=== PATIENT | female | born 1955 | race Caucasian/White ===

== ENCOUNTER 2017-04-22 05:32 | Outpatient (CLI) | payer BC ==
[~2017-04-22] VITALS: Ht 157.5 cm; Wt 53.5 kg
[2017-04-22] MEDS ORDERED: ASCO500C17 PO (14:56)
[2017-04-22] MEDS ORDERED: ATOR10TA66 PO (14:56)
[2017-04-22] MEDS ORDERED: ESTR0.3T PO (14:56)
[2017-04-22] MEDS ORDERED: OMG1KC PO (14:56)
[2017-04-22] MEDS ORDERED: LOSA1TAB20 PO (14:56)
[2017-04-22] MEDS ORDERED: MELO15TA39 PO (14:56)
[2017-04-22] MEDS ORDERED: MULT-974 PO (14:56)
[2017-04-22] MEDS ORDERED: CHOL200014 PO (14:56)
[2017-04-22] MEDS ORDERED: CALC600T12 PO (14:56)
[2017-04-22] MEDS ORDERED: GLUC1TAB20 PO (14:56)
== END 2017-04-22 15:05 ==
LOC: PREOP 05:32
PROVIDERS: ATTEND Otolaryngology Otolaryngology/Facial Plastic Surgery
DX: Z01.818 Encounter for other preprocedural examination (principal); J32.9 Chronic sinusitis, unspecified; J34.2 Deviated nasal septum; J34.3 Hypertrophy of nasal turbinates

== ENCOUNTER 2017-04-25 06:51 | Day surgery (SDC) | payer BC ==
[~2017-04-25] VITALS: Ht 157.5 cm; Wt 53.5 kg
[~2017-04-25 06:51] MED LIST: ASCO500C17 PO; ATOR10TA66 PO; CALC600T12 PO; CHOL200014 PO; ESTR0.3T PO; GLUC1TAB20 PO; LOSA1TAB20 PO; MELO15TA39 PO; MULT-974 PO; OMG1KC PO
--- OUTSIDE RECORDS SUMMARY | 2017-04-25 06:56 | XMS REPORT ---
Author Author [facility] Medical Staff Organization [facility] Address [address] [place], [place] [address] Phone [phone] Care Team Providers Care Cleaning Specialist Name Role Phone JAMAL CABRERA MD PP [phone] Summary purpose CCDA Sent to [facility] Chief Complaint and Reason for Visit No authorized Reason for Visit (Admitting Diagnosis) is available for this visit. Problem list No authorized problems tracked for continuity of care are available for this visit. Encounters No authorized problems tracked for encounter diagnoses are available for this visit. Medications No medications recorded for this patient visit Allergies, adverse reactions, alerts Allergen Category Ingredient Status Reaction Severity Onset No known drug allergies No known drug allergies No known drug allergies Active Immunizations No immunizations recorded for this patient visit Relevant diagnostic tests and/or laboratory data No authorized results are available for this patient visit History of procedures Procedure Code Code Type Description Date Performed Performing Physician 29989 CPT-4 EMERGENCY DEPT VISIT 01-22-2016 RENEE CARRENO Functional status No functional or cognitive status observations are available for this visit. Vital signs No authorized vital signs are available for this visit. Social history No Social History or smoking status observations were recorded for this visit. ( Unknown if ever smoked.) Treatment Plan No treatment plan text is available for this visit. Hospital discharge instructions No discharge instruction text is available for this visit.
--- OUTSIDE RECORDS SUMMARY | 2017-04-25 06:56 | XMS REPORT ---
Author Author [facility] Medical Staff Organization [facility] Address [address] [place], [place] [address] Phone [phone] Care Team Providers Care Bilingual Teacher Aide Name Role Phone RICK BULL, JAMAL CHANG [phone] Summary purpose CCDA Sent to [facility] Chief Complaint and Reason for Visit No [...] Code Type Description Date Performed Performing Physician 04556 CPT-4 COMPUTER DX MAMMOGRAM ADD-ON 12-14-2015 JAMAL CABRERA 63748 CPT-4 MAMMOGRAM, ONE BREAST 12-14-2015 JAMAL CABRERA 72026 CPT-4 ULTRASOUND BREAST LIMITED 12-14-2015 JAMAL CABRERA Functional status No functional or cognitive status [...]
--- OUTSIDE RECORDS SUMMARY | 2017-04-25 06:56 | XMS REPORT ---
Author Author [facility] Medical Staff Organization [facility] Address [address] [place], [place] [address] Phone [phone] Summary purpose CCDA Sent to [facility] Chief Complaint and Reason for [...] Code Type Description Date Performed Performing Physician 88610 CPT-4 EMERGENCY DEPT VISIT 05-29-2015 RAMONA FLANAGAN Functional status No functional or cognitive status [...]
--- OUTSIDE RECORDS SUMMARY | 2017-04-25 06:56 | XMS REPORT ---
Author Author [facility] Medical Staff Organization [facility] Address [address] [place], [place] [address] Phone [phone] Care Team Providers Care Typing Teacher Name Role Phone JAMAL CABRERA MD PP [phone] Summary purpose CCDA Sent to [facility] Chief Complaint and Reason for Visit [...] visit Relevant diagnostic tests and/or laboratory data RESULTS CBC [id number]:05:00 Result Normal Range Units WBC 6.33 4.60-10.20 x 103/uL RBC 4.61 4.04-6.13 x 106/uL Hemoglobin 13.3 12.2-18.1 g/dl Hematocrit 39.7 37.7-53.7 % MCV 86.1 80.0-97.0 FL MCH 28.9 27.0-31.2 pg MCHC 33.5 31.8-35.4 g/dl RDW 12.7 11.6-14.8 % Platelets 273 142-424 x 103/uL MPV 9.4 9.4-12.4 FL Manual Diff Not Indicated Neutrophil % 69.7 37-80 % Neutrophils 4.42 2.0-6.9 x 103/uL Lymphocyte % 19.0 10-50 % Lymphocytes 1.20 0.6-3.4 x 103/uL Monocyte % 8.1 0-12 % Monocytes 0.51 0.0-1.0 x 103/uL Eosinophil % 3.0 0-7 % Eosinophils 0.19 0-0.7 x 103/uL Basophil % 0.2 0-2 % Basophils 0.01 0.0-0.1 x 103/uL Chemistry Group [id number]:00 Result Normal Range Units Glucose 85 70-99 mg/dl BUN 16 7-26 mg/dl Creatinine 0.6 0.6-1.3 mg/dl Sodium 141 136-145 mmol/L Potassium 4.1 3.5-5.1 mmol/L Chloride H 108 98-107 mmol/L CO2 26 22-29 mmol/L BUN/Creatinine Ratio H 27 7-25 Ratio Calcium 9.9 8.4-10.2 mg/dl Protein Total 6.6 6.4-8.3 g/dl Albumin 3.9 3.5-5.0 g/dl A/G Ratio 1.4 1.2-2.2 Ratio AST 15 5-34 U/L ALT 15 0-55 U/L ALP 63 40-150 U/L Bilirubin Total 0.3 0.2-1.2 mg/dl Osmolality 273 261-280 mOsm/kg Globulin 2.7 2.4-3.5 g/dl Magnesium 2.5 1.6-2.8 mg/dl Phosphorus 3.7 2.3-4.7 mg/dl Iron 81 50-175 ug/dl History of procedures Procedure Code Code Type Description Date Performed Performing Physician 18701 CPT-4 COMPLETE CBC W/AUTO DIFF WBC 01-25-2016 [facility] 28854 CPT-4 COMPREHEN METABOLIC PANEL 01-25-2016 [facility] 01541 CPT-4 ASSAY OF IRON 01-25-2016 [facility] 47202 CPT-4 ASSAY OF MAGNESIUM 01-25-2016 [facility] 19990 CPT-4 ASSAY OF PHOSPHORUS 01-25-2016 [facility] 29373 CPT-4 ROUTINE VENIPUNCTURE 01-25-2016 [facility] Functional status No functional or cognitive status [...]
--- OUTSIDE RECORDS SUMMARY | 2017-04-25 06:56 | XMS REPORT ---
Author Author [facility] Medical Staff Organization [facility] Address [address] [place], [place] [address] Phone [phone] Care Team Providers Care Admitting Interviewer Name Role Phone RICK BULL, JAMAL CHANG [phone] Summary purpose CCDA Sent to [facility] Chief Complaint and Reason for Visit Admit Diagnosis 1 HTN HLD MURMUR Problem list No authorized problems tracked for [...] Code Type Description Date Performed Performing Physician 37047 CPT-4 TTE W/DOPPLER, COMPLETE 07-18-2016 JAMAL CABRERA Functional status No functional or [...]
--- OUTSIDE RECORDS SUMMARY | 2017-04-25 06:56 | XMS REPORT ---
Author Author [facility] Medical Staff Organization [facility] Address [address] [place], [place] [address] Phone [phone] Summary purpose CCDA Sent to [facility] Chief Complaint and Reason for Visit [...] Code Type Description Date Performed Performing Physician 08904 CPT-4 X-RAY EXAM OF HAND 05-29-2015 RAMONA FLANAGAN 05292 CPT-4 EMERGENCY DEPT VISIT 05-29-2015 RAMONA FLANAGAN Functional status Cognitive Status Finding Observation Time Level of Consciousne Alert 34-64-882674:05 Oriented to Person Yes 28-91-151831:[address] Yes 28-20-522530:05 Oriented to Time Yes 88-92-598436:05 Vital signs Type Value Date Respirations 20 99-81-209037:20 Pulse 81 13-39-231065:20 O2 Saturation 95% 99-64-408945:20 Systolic Blood Press 136mm/HG 94-70-445947:20 Diastolic Blood Pres 85mm/HG 50-90-490192:20 Temperature (Fahr) 97.2Degrees 94-23-567154:20 Social history Type Value Smoking Status UNKNOWN IF EVER SMOKED Treatment Plan No treatment plan text is available for this visit. Hospital discharge instructions Diagnosis Fracture of 5th metacarpal Diet Regular Activity Level No limits with splint Med Dispensed by [facility] You had a hand xray and an Rx for Tylenol #3 was given for the pain of the metacarpal. Follow up with your doctor Appointment Date and as needed Wound Care To wear the splint for 2-3 weeks and allow the bone to heal but can remove for showering and etc. You have a metacarpal splint with 2in jack wrap for support. Other Instructions notify if has further problems or questions.
--- OUTSIDE RECORDS SUMMARY | 2017-04-25 06:56 | XMS REPORT ---
Author Author [facility] Medical Staff Organization [facility] Address [address] [place], [place] [address] Phone [phone] Care Team Providers Care Field Assessor Name Role Phone RICK BULL, JAMAL PP [phone] JAMAL SKELTON MD PP [phone] Summary purpose CCDA Sent to [facility] Chief Complaint and Reason for Visit Admit Diagnosis 1 LT FOOT PAIN/BRUSING - FALL Problem list No authorized problems tracked for [...] Code Type Description Date Performed Performing Physician 03689 CPT-4 X-RAY EXAM OF FOOT 01-22-2016 JAMAL SKELTON 09531 CPT-4 EMERGENCY DEPT VISIT 01-22-2016 JAMAL SKELTON Functional status Cognitive Status Finding Observation Time Level of Consciousne Alert 22-90-237760:20 Oriented to Person Yes 71-41-981380:[address] Yes 70-59-275156:20 Oriented to Time Yes 71-88-151200:20 Vital signs Type Value Date Respirations 20 58-69-659700:45 Pulse 73 :45 O2 Saturation 97% :45 Systolic Blood Press 152mm/HG 21-83-988576:45 Diastolic Blood Pres 88mm/HG :45 Temperature (Fahr) 97.0Degrees 44-14-372975:45 Height 61in 41-42-543061:22 Weight 117LB 13-63-263599:22 Social history Type Value Smoking Status NEVER SMOKER Treatment Plan No treatment plan text is available for this visit. Hospital discharge instructions Diagnosis Fracture of the shaft of the left 5th metatarsal Diet as tolerated Activity Level No weight bearing on the left foot. Use crutches if possible Med Dispensed by [facility] None. Use home pain meds. Follow up with Dr. Skelton Appointment Date and Sat or
--- OUTSIDE RECORDS SUMMARY | 2017-04-25 06:56 | XMS REPORT ---
Author Author [facility] Medical Staff Organization [facility] Address [address] [place], [place] [address] Phone [phone] Care Team Providers Care Kennel Hand Name Role Phone RICK BULL, JAMAL CHANG [phone] Summary purpose CCDA Sent to [facility] Chief Complaint and Reason for Visit Admit Diagnosis 1 HTN HLD Problem list No authorized problems tracked for [...] Code Type Description Date Performed Performing Physician 73077 CPT-4 COMPREHEN METABOLIC PANEL 07-16-2016 JAMAL CABRERA 63108 CPT-4 ASSAY THYROID STIM HORMONE 07-16-2016 JAMAL CABRERA 24681 CPT-4 LIPID PANEL 07-16-2016 JAMAL CABRERA 27851 CPT-4 ASSAY OF MAGNESIUM 07-16-2016 JAMAL CABRERA 59128 CPT-4 ASSAY OF PHOSPHORUS 07-16-2016 JAMAL CABRERA 36041 CPT-4 COMPLETE CBC W/AUTO DIFF WBC 07-16-2016 JAMAL CABRERA Functional status No functional or [...]
--- OUTSIDE RECORDS SUMMARY | 2017-04-25 06:56 | XMS REPORT ---
Author Author [facility] Medical Staff Organization [facility] Address [address] [place], [place] [address] Phone [phone] Care Team Providers Care Block Cableman Name Role Phone RICK BULL, JAMAL PP [phone] Summary purpose CCDA Sent to [facility] Chief Complaint and Reason for Visit Admit Diagnosis 1 FX OF LEFT FOOT Problem list No authorized problems tracked for [...] Code Type Description Date Performed Performing Physician 67234 CPT-4 X-RAY EXAM OF FOOT 03-27-2016 JAMAL CABRERA Functional status No functional or [...]
--- OUTSIDE RECORDS SUMMARY | 2017-04-25 06:56 | XMS REPORT ---
Author Author [facility] Medical Staff Organization [facility] Address [address] [place], [place] [address] Phone [phone] Summary purpose CCDA Sent to [facility] Chief Complaint and Reason for Visit [...] diagnostic tests and/or laboratory data RESULTS CBC :54:00 Result Normal Range Units WBC 5.37 4.60-10.20 x 103/uL RBC 4.62 4.04-6.13 x 106/uL Hemoglobin 13.0 12.2-18.1 g/dl Hematocrit 39.8 37.7-53.7 % MCV 86.1 80.0-97.0 FL MCH 28.1 27.0-31.2 pg MCHC 32.7 31.8-35.4 g/dl RDW 12.8 11.6-14.8 % Platelets 238 142-424 x 103/uL MPV 9.6 9.4-12.4 FL Manual Diff Not Indicated Neutrophil % 64.0 37-80 % Neutrophils 3.44 2.0-6.9 x 103/uL Lymphocyte % 23.8 10-50 % Lymphocytes 1.28 0.6-3.4 x 103/uL Monocyte % 8.6 0-12 % Monocytes 0.46 0.0-1.0 x 103/uL Eosinophil % 3.2 0-7 % Eosinophils 0.17 0-0.7 x 103/uL Basophil % 0.4 0-2 % Basophils 0.02 0.0-0.1 x 103/uL Chemistry Group [id number]:54:00 Result Normal Range Units Glucose 88 70-99 mg/dl BUN 19 7-26 mg/dl Creatinine 0.7 0.6-1.3 mg/dl Sodium 143 136-145 mmol/L Potassium 4.2 3.5-5.1 mmol/L Chloride 106 98-107 mmol/L CO2 29 22-29 mmol/L BUN/Creatinine Ratio H 27 7-25 Ratio Calcium 9.7 8.4-10.2 mg/dl Protein Total 6.6 6.4-8.3 g/dl Albumin 3.9 3.5-5.0 g/dl A/G Ratio 1.4 1.2-2.2 Ratio AST 17 5-34 U/L ALT 21 0-55 U/L ALP 56 40-150 U/L Bilirubin Total 0.4 0.2-1.2 mg/dl Osmolality 278 261-280 mOsm/kg Globulin 2.7 2.4-3.5 g/dl Triglycerides H 234 0-149 mg/dl Cholesterol 171 0-199 mg/dl HDL 43 40-60 mg/dl LDL 81 0-130 mg/dl VLDL H 47 0-21 mg/dl Magnesium 2.5 1.6-2.8 mg/dl Phosphorus 3.2 2.3-4.7 mg/dl TSH 1.58 0.35-4.94 uIU/mL Special Chemistry [id number]:54:00 Result Normal Range Units Vitamin D 25 45.2 30-100 ng/ml History of procedures Procedure Code Code Type Description Date Performed Performing Physician 82389 CPT-4 COMPLETE CBC W/AUTO DIFF WBC 07-22-2015 [facility] 05712 CPT-4 COMPREHEN METABOLIC PANEL 07-22-2015 [facility] 53448 CPT-4 LIPID PANEL 07-22-2015 [facility] 68295 CPT-4 ASSAY THYROID STIM HORMONE 07-22-2015 [facility] 33184 CPT-4 ASSAY OF MAGNESIUM 07-22-2015 [facility] 42479 CPT-4 ASSAY OF PHOSPHORUS 07-22-2015 [facility] 36473 CPT-4 ASSAY OF VITAMIN D 07-22-2015 [facility] 44666 CPT-4 ROUTINE VENIPUNCTURE 07-22-2015 [facility] Functional status No functional or cognitive status [...]
--- OUTSIDE RECORDS SUMMARY | 2017-04-25 06:56 | XMS REPORT ---
Author Author [facility] Medical Staff Organization [facility] Address [address] [place], [place] [address] Phone [phone] Care Team Providers Care Road Cutter Name Role Phone RICK BULL, JAMAL CHANG [phone] Summary purpose CCDA Sent to [facility] Chief Complaint and Reason for Visit No [...] Code Type Description Date Performed Performing Physician 42840 CPT-4 COMP SCREEN MAMMOGRAM ADD-ON 12-02-2015 JAMAL CABRERA G0202 CPT-4 SCREENINGMAMMOGRAPHYDIGITAL 12-02-2015 JAMAL CABRERA Functional status No functional or [...]
--- OUTSIDE RECORDS SUMMARY | 2017-04-25 06:56 | XMS REPORT ---
Author Author [facility] Medical Staff Organization [facility] Address [address] [place], [place] [address] Phone [phone] Summary purpose CCDA Sent to [facility] Chief Complaint and Reason for Visit [...] Code Type Description Date Performed Performing Physician 88758 CPT-4 X-RAY EXAM OF HAND 06-06-2015 RAMONA FLANAGAN Functional status No functional or [...]
--- OUTSIDE RECORDS SUMMARY | 2017-04-25 06:56 | XMS REPORT ---
Author Author [facility] Medical Staff Organization [facility] Address [address] [place], [place] [address] Phone [phone] Care Team Providers Care Machine Operator Farmworker Name Role Phone RICK BULL, JAMAL PP [phone] Summary purpose CCDA Sent to [facility] Chief Complaint and Reason for Visit No [...] Code Type Description Date Performed Performing Physician 67736 CPT-4 X-RAY EXAM OF FOOT 02-14-2016 JAMAL CABRERA Functional status No functional or [...]
--- OUTSIDE RECORDS SUMMARY | 2017-04-25 06:57 | XMS REPORT | Continuity of Care Document ---
Author Author [facility] Organization [facility] Address Unknown Phone Unavailable Allergies Active Description Code Type Severity Reaction Onset Reported/Identified Relationship to Patient Clinical Status Yes No known drug allergies [id number] ND N/A N/A 05/29/2015 Medications There is no data. Problems Date Dx Coded Attending Type Code Diagnosis Diagnosed By 05/29/2015 RAMONA FLANAGAN DO S62.317A Disp fx of base of fifth metacarpal bone. left hand, init 05/29/2015 RAMONA FLANAGAN DO W19.XXXA Unspecified fall, initial encounter 05/29/2015 RAMONA FLANAGAN DO Y92.[address] in single-family (private) house as place 05/29/2015 RAMONA FLANAGAN DO Y93.9 Activity, unspecified 05/29/2015 RAMONA FLANAGAN DO Y99.9 Unspecified external cause status 05/29/2015 RAMONA FLANAGAN DO S62.317A Disp fx of base of fifth metacarpal bone. left hand, init 05/29/2015 RAMONA FLANAGAN DO W19.XXXA Unspecified fall, initial encounter 05/29/2015 RAMONA FLANAGAN DO Y92.[address] in single-family (private) house as place 05/29/2015 RAMONA FLANAGAN DO Y93.9 Activity, unspecified 05/29/2015 RAMONA FLANAGAN DO Y99.9 Unspecified external cause status 06/06/2015 RAMONA FLANAGAN DO S62.317D Disp fx of base of 5th MC bone. l hand, 7thD 07/22/2015 JAMAL CABRERA MD E78.5 Hyperlipidemia, unspecified 07/22/2015 JAMAL CABRERA MD M19.90 Unspecified osteoarthritis, unspecified site 07/22/2015 JAMAL CABRERA MD R53.83 Other fatigue 12/02/2015 JAMAL CABRERA MD Z12.31 Encntr screen mammogram for malignant neoplasm of breast 12/14/2015 RICK BULL, JAMAL Ayala N63 Unspecified lump in breast 12/14/2015 JAMAL CABRERA MD R92.8 Oth abn and inconclusive findings on dx imaging of breast 01/22/2016 JAMAL CABRERA MD S92.352A Disp fx of fifth metatarsal bone, left foot, init 01/22/2016 JAMAL CABRERA MD W19.XXXA Unspecified fall, initial encounter 01/22/2016 JAMAL CABRERA MD Y92.[address] in single-family (private) house as place 01/22/2016 JAMAL CABRERA MD Y93.89 Activity, other specified 01/22/2016 JAMAL CABRERA MD Y99.9 Unspecified external cause status 01/25/2016 JAMAL CABRERA MD D64.9 Anemia, unspecified 01/25/2016 JAMAL CABRERA MD I10 Essential (primary) hypertension 02/14/2016 JAMAL CABRERA MD S92.352A Disp fx of fifth metatarsal bone, left foot, init 02/14/2016 JAMAL CABRERA MD W19.XXXA Unspecified fall, initial encounter 02/14/2016 JAMAL CABRERA MD Y92.[address] in single-family (private) house as place 02/14/2016 JAMAL CABRERA MD Y93.9 Activity, unspecified 02/14/2016 JAMAL CABRERA MD Y99.9 Unspecified external cause status 03/27/2016 JAMAL CABRERA MD S92.902D Unsp fracture of left foot, subs for fx w routn heal 07/16/2016 JAMAL CABRERA MD E78.5 Hyperlipidemia, unspecified 07/16/2016 JAMAL CABRERA MD I10 Essential (primary) hypertension 07/18/2016 JAMAL CABRERA MD E78.5 Hyperlipidemia, unspecified 07/18/2016 JAMAL CABRERA MD I10 Essential (primary) hypertension 07/18/2016 JAMAL CABRERA MD R01.1 Cardiac murmur, unspecified 01/28/2017 JAMAL CABRERA MD E78.5 Hyperlipidemia, unspecified 01/28/2017 JAMAL CABRERA MD Z12.31 Encntr screen mammogram for malignant neoplasm of breast 01/31/2017 RICK BULL, JAMAL Ayala N39.0 Urinary tract infection, site not specified 02/05/2017 RICK BULL, JAMAL Ayala J32.9 Chronic sinusitis, unspecified 03/15/2017 AARON REEVES J32.9 Chronic sinusitis, unspecified 03/15/2017 AARON REEVES J34.2 Deviated nasal septum 04/11/2017 RICHARD BULL, PEACE Ayala Z01.818 Encounter for other preprocedural examination Procedures Code [place] [address] X-RAY EXAM OF HAND RAMONA FLANAGAN DO 05/29/2015 13924 EMERGENCY DEPT VISIT RAMONA FLANAGAN DO 05/29/2015 32356 EMERGENCY DEPT VISIT PANCHITO SZYMANSKI RAMONA L 05/29/2015 86214 X-RAY EXAM OF RAMONA FENG DO 06/06/2015 92956 ROUTINE VENIPUNCTURE JAMAL CABRERA MD 07/22/2015 02786 COMPREHEN METABOLIC PANEL JAMAL CABRERA MD 07/22/2015 33832 LIPID PANEL JAMAL CABRERA MD 07/22/2015 78038 VITAMIN D 25 HYDROXY JAMAL CABRERA MD 07/22/2015 40742 ASSAY OF MAGNESIUM JAMAL CABRERA MD 07/22/2015 21062 ASSAY OF PHOSPHORUS JAMAL CABRERA MD 07/22/2015 62745 ASSAY THYROID STIM HORMONE JAMAL CABRERA MD 07/22/2015 26814 COMPLETE CBC W/AUTO DIFF WBC JAMAL CABRERA MD 07/22/2015 84888 COMP SCREEN MAMMOGRAM ADD- ON JAMAL CABRERA MD 12/02/2015 G0202 SCREENINGMAMMOGRAPHYDIGITAL JAMAL CABRERA MD 12/02/2015 38031 ULTRASOUND BREAST LIMITED JAMAL CABRERA MD 12/14/2015 66356 COMPUTER DX MAMMOGRAM ADD- ON JAMAL CABRERA MD 12/14/2015 63899 MAMMOGRAM ONE BREAST JAMAL CABRERA MD 12/14/2015 66839 X-RAY EXAM OF FOOT JAMAL CABRERA MD 01/22/2016 36676 EMERGENCY DEPT VISIT JAMAL CABRERA MD 01/22/2016 70708 ROUTINE VENIPUNCTURE JAMAL CABRERA MD 01/25/2016 44689 COMPREHEN METABOLIC PANEL RICK BULL, JAMAL Michael 01/25/2016 51130 ASSAY OF IRON RICK BULL, JAMAL Michael 01/25/2016 72990 ASSAY OF MAGNESIUM RICK BULL, JAMAL Michael 01/25/2016 36505 ASSAY OF PHOSPHORUS RICK BULL, JAMAL Michael 01/25/2016 67981 COMPLETE CBC W/AUTO DIFF WBC RICK BULL, JAMAL Michael 01/25/2016 40560 X-RAY EXAM OF FOOT RICK BULL, JAMAL Michael 02/14/2016 37908 X-RAY EXAM OF FOOT RICK BULL, JAMAL Michael 03/27/2016 71730 ROUTINE VENIPUNCTURE RICK BULL, JAMAL Michael 07/16/2016 14836 COMPREHEN METABOLIC PANEL RICK BULL, JAMAL Michael 07/16/2016 18376 LIPID PANEL RICK BULL, JAMAL Michael 07/16/2016 83023 ASSAY OF MAGNESIUM RICK BULL, JAMAL Michael 07/16/2016 70305 ASSAY OF PHOSPHORUS RICK BULL, JAMAL Michael 07/16/2016 84117 ASSAY THYROID STIM HORMONE RICK BULL, JAMAL Michael 07/16/2016 78783 COMPLETE CBC W/AUTO DIFF WBC RICK BULL, JAMAL Michael 07/16/2016 40151 TTE W/DOPPLER VIKAS CABRERA MD, JAMAL Michael 07/18/2016 02284 ROUTINE VENIPUNCTURE RICK BULL, JAMAL Michael 01/28/2017 97419 SCR MAMMO BI INCL CAD RICK BULL, JAMAL Michael 01/28/2017 35100 ASSAY OF TRIGLYCERIDES RICK BULL, JAMAL Michael 01/28/2017 11182 URINALYSIS AUTO W/SCOPE RICK BULL, JAMAL Michael 01/31/[address] MAXILLOFACIAL W/O DAPHNE CABRERA MD, JAMAL Michael 02/05/[address] MAXILLOFACIAL W/O AARON RICO 03/15/2017 25790 ROUTINE VENIPUNCTURE RICHARD BULL, PEACE [place] 04/11/2017 94906 X-RAY EXAM CHEST 2 VIEWS RICHARD BULL, PEACE [place] 04/11/2017 69950 METABOLIC PANEL TOTAL CA RICHARD BULL, PEACE [place] 04/11/2017 37015 COMPLETE CBC W/AUTO DIFF WBC RICHARD BULL, PEACE [place] 04/11/2017 23705 ELECTROCARDIOGRAM TRACING PEAEC RAMOS MD 04/11/2017 Results Test Result Range COMPLETE BLOOD COUNT - 07/22/15 11:20 Platelet 238 10^3u 142-424 MPV 9.6 FL 9.4-12.4 [place] # 0.46 10^3u 0.0-1.0 RBC 4.62 10^6u 4.04-6.13 [place] % 8.6 % 0-12 RDW 12.8 % 11.6-14.8 Neut # 3.44 10^3u 2.0-6.9 Neut % 64.0 % 37-80 WBC 5.37 10^3u 4.60-10.20 MCV 86.1 FL 80.0-97.0 Baso # 0.02 10^3u 0.0-0.1 Baso % 0.4 % 0-2 Eos # 0.17 10^3u 0-0.7 Eos % 3.2 % 0-7 Lymph % 23.8 % 10-50 MCHC 32.7 G/DL 31.8-35.4 MCH 28.1 PG 27.0-31.2 Lymph # 1.28 10^3u 0.6-3.4 HGB 13.0 G/DL 12.2-18.1 HCT 39.8 % 37.7-53.7 CMP - 07/22/15 11:45 Osmo Calculated 278 MOSM 261-280 Sodium 143 MMOLL 136-145 T. Protein 6.6 G/DL 6.4-8.3 Potassium 4.2 MMOLL 3.5-5.1 T Bili 0.4 MG/DL 0.2-1.2 Calcium 9.7 MG/DL 8.4-10.2 BUN 19 MG/DL 7-26 Chloride 106 MMOLL 98-107 AST 17 U/L 5-34 ALT 21 U/L 0-55 Albumin 3.9 G/DL 3.5-5.0 A/G Ratio 1.4 RATIO 1.2-2.2 Bun/Creat 27 RATIO 7-25 Alk Phos 56 U/L 40-150 CO2 29 MMOLL 22-29 Glucose 88 MG/DL 70-99 Globulin 2.7 G/DL 2.4-3.5 Creatinine 0.7 MG/DL 0.6-1.3 Lipid Profile - 07/22/15 11:45 HDL 43 MG/DL 40-60 VLDL 47 MG/DL 0-21 Triglyceride 234 MG/DL 0-149 Cholesterol 171 MG/DL 0-199 LDL Calculated 81 MG/DL 0-130 TSH - 07/22/15 11:45 TSH 1.58 UIUML 0.35-4.94 Magnesium - 07/22/15 11:46 Magnesium 2.5 MG/DL 1.6-2.8 Phosphorus - 07/22/15 11:46 Phosphorus 3.2 MG/DL 2.3-4.7 Vitamin D 25 Hydroxy - 07/22/15 12:33 Vitamin D 25 Hydroxy 45.2 NG/ML 30-100 COMPLETE BLOOD COUNT - 01/25/16 10:53 Platelet 273 10^3u 142-424 MPV 9.4 FL 9.4-12.4 [place] # 0.51 10^3u 0.0-1.0 RBC 4.61 10^6u 4.04-6.13 [place] % 8.1 % 0-12 RDW 12.7 % 11.6-14.8 Neut # 4.42 10^3u 2.0-6.9 Neut % 69.7 % 37-80 WBC 6.33 10^3u 4.60-10.20 MCV 86.1 FL 80.0-97.0 Baso # 0.01 10^3u 0.0-0.1 Baso % 0.2 % 0-2 Eos # 0.19 10^3u 0-0.7 Eos % 3.0 % 0-7 Lymph % 19.0 % 10-50 MCHC 33.5 G/DL 31.8-35.4 MCH 28.9 PG 27.0-31.2 Lymph # 1.20 10^3u 0.6-3.4 HGB 13.3 G/DL 12.2-18.1 HCT 39.7 % 37.7-53.7 Iron - 01/25/16 11:45 Iron 81 UG/DL 50-175 CMP - 01/25/16 11:45 Osmo Calculated 273 MOSM 261-280 Sodium 141 MMOLL 136-145 T. Protein 6.6 G/DL 6.4-8.3 Potassium 4.1 MMOLL 3.5-5.1 T Bili 0.3 MG/DL 0.2-1.2 Calcium 9.9 MG/DL 8.4-10.2 BUN 16 MG/DL 7-26 Chloride 108 MMOLL 98-107 AST 15 U/L 5-34 ALT 15 U/L 0-55 Albumin 3.9 G/DL 3.5-5.0 A/G Ratio 1.4 RATIO 1.2-2.2 Bun/Creat 27 RATIO 7-25 Alk Phos 63 U/L 40-150 CO2 26 MMOLL 22-29 Glucose 85 MG/DL 70-99 Globulin 2.7 G/DL 2.4-3.5 Creatinine 0.6 MG/DL 0.6-1.3 Magnesium - 01/25/16 11:45 Magnesium 2.5 MG/DL 1.6-2.8 Phosphorus - 01/25/16 11:45 Phosphorus 3.7 MG/DL 2.3-4.7 Encounters ACCT No. Visit Date/Time Discharge Status Pt. Type Provider Facility Loc./Unit Complaint [id number] 04/21/2015 12:38:12 04/21/2015 23:59:59 CLS Outpatient Meagan Duran [id number] 04/11/2017 09:07:00 04/11/2017 09:07:00 DIS Outpatient RICHARD BULL, [facility] RAD [id number] 03/15/2017 11:15:00 03/15/2017 11:15:00 [id number] 02/05/2017 10:24:00 02/05/2017 10:24:00 DIS Outpatient RICK BULL, [facility] RAD [id number] 01/31/2017 17:54:00 01/31/2017 17:54:00 DIS Outpatient RICK BULL, [facility] LAB [id number] 01/28/2017 08:14:00 01/28/2017 08:14:00 DIS Outpatient RICK BULL, [facility] RAD [id number] 07/18/2016 09:56:00 07/18/2016 09:56:00 DIS Outpatient RICK BULL, [facility] RAD [id number] 07/16/2016 10:03:00 07/16/2016 10:03:00 DIS Outpatient RICK BULL, [facility] LAB [id number] 03/27/2016 10:45:00 03/27/2016 10:45:00 DIS Outpatient RICK BULL, [facility] RAD [id number] 02/14/2016 10:33:00 02/14/2016 10:33:00 DIS Outpatient RICK BULL, [facility] OTHER [id number] 01/25/2016 10:06:00 01/25/2016 10:06:00 DIS Outpatient RICK BULL, [facility] OTHER [id number] 01/22/2016 09:27:00 01/22/2016 22:19:00 DIS Emergency RICK BULL, [facility] ER [id number] 12/14/2015 11:25:00 12/14/2015 11:25:00 DIS Outpatient RICK BULL, [facility] OTHER [id number] 12/02/2015 09:45:00 12/02/2015 09:45:00 DIS Outpatient RICK BULL, [facility] OTHER [id number] 07/22/2015 10:37:00 07/22/2015 10:37:00 DIS Outpatient RICK BULL, [facility] OTHER [id number] 06/06/2015 12:49:00 06/06/2015 12:49:00 [id number] 05/29/2015 12:09:00 05/29/2015 13:30:00 DIS Emergency [facility] ER [id number] 05/29/2015 12:40:00 05/29/2015 12:40:00 [facility]
[2017-04-25 07:15] VITALS: BP 156/98
[2017-04-25] MEDS: LACTATED RINGERS 1,000 ML IV PRN ×2 (07:44→09:22)
[2017-04-25] MEDS ORDERED: HYDROCORTISONE 100 MG/2 ML (Solu-CORTEF) VIAL IV ONE (07:45)
[2017-04-25] MEDS ORDERED: AMPICILLIN/SULBACTAM INJECTION 1.5 GM in NS (IVPB) 100 ML IV ONE (07:45)
[2017-04-25] MEDS ORDERED: DEXAMETHASONE 10 MG/ML (DECADRON) 1 ML VIAL ONE (08:10)
[2017-04-25] MEDS ORDERED: proPOfol 200 MG/20 ML (DIPRIVAN) VIAL IV ONE (08:10)
[2017-04-25] MEDS ORDERED: LIDOCAINE PF 2% 5 ML (XYLOCAINE) VIAL ONE (08:10)
[2017-04-25] MEDS ORDERED: ONDANSETRON 4 MG/2 ML (SDV) Z0FRAN ONE (08:10)
[2017-04-25] MEDS ORDERED: MIDAZOLAM 2 MG/2 ML (VERSED) VIAL ONE (08:10)
[2017-04-25] MEDS ORDERED: SEVOFLURANE (ULTANE) 15 ML INHAL SOLN ONE ×8 (08:10→10:22)
[2017-04-25] MEDS ORDERED: ROCURONIUM 50 MG/5 ML (ZEMURON) VIAL IV ONE (08:10)
[2017-04-25] MEDS ORDERED: fentaNYL INJECTION 100 MCG/2 ML AMP ONE (08:10)
[2017-04-25] MEDS ORDERED: FAMOTIDINE 20MG/2ML IV (PEPCID) IV ONE (08:15)
[2017-04-25] MEDS ORDERED: COCAINE HCL 4% 2 ML SYR ONE (08:26)
[2017-04-25] MEDS ORDERED: PHENYLEPHRINE 0.5% NASAL SPR (NEO-SYNEPHRINE) REG ONE (08:26)
[2017-04-25] MEDS ORDERED: BSS 15 ML ONE (08:26)
[2017-04-25] MEDS ORDERED: LIDOCAINE/EPI 1%-1:200,000 (XYLOCAINE) 10 ML VIAL ONE ×2 (08:26→08:27)
--- NOTE | 2017-04-25 08:42 | Progress Note-Pre Operative ---
Pre-Operative Progress Note H&P Reviewed The H&P was reviewed, patient examined and no changes noted. Date Seen by Provider: Apr 25, 2017 Time Seen by Provider: 08:00 Date H&P Reviewed: Apr 25, 2017 Time H&P Reviewed: 08:00 Pre-Operative Diagnosis: Bilat Chronic Sinus Disese, Deviated Septum, Bilat Hyper of Inf Turbs PEACE RAMOS MD Apr 25, 2017 8:42 am
[2017-04-25] MEDS ORDERED: GLYCOPYRROLATE 0.2 MG/ML (ROBINUL) 2 ML VIAL ONE (10:10)
[2017-04-25] MEDS ORDERED: NEOSTIGMINE (BLOXIVERZ ) 1 MG/1ML 10 ML VIAL ONE (10:10)
[2017-04-25] MEDS ORDERED: D5 1/2 NS W/KCL 20 MEQ/L 1,000 ML IV SCH (10:18)
--- NOTE | 2017-04-25 10:18 | Progress Note-Post Operative ---
Post-Operative Progess Note Surgeon (s)/Circular Sawyer Helper (s) Surgeon PEACE RAMOS MD Circular Sawyer Helper n/a Pre-Operative Diagnosis Bilat Chronic Sinus Disese, Deviated Septum, Bilat Hyper of Inf Turbs Post-Operative Diagnosis same Post-Op Procedure Note Date of Procedure: Apr 25, 2017 Name of Procedure Performed: Bilat ESS, Nasal Septoplasty, Bilat Red of Inf Turbs Description & Findings Description and Findings: n/a Anesthesia Type get Estimated Blood Loss minimal Packing none. Specimen(s) collected/removed bilat chornic sinus disease PEACE RAMOS MD Apr 25, 2017 10:18 am
[2017-04-25] MEDS ORDERED: PROMETHAZINE INJ 25 MG/ML (PHENERGAN) AMP IVP PRN (10:30)
[2017-04-25] MEDS ORDERED: predniSONE 20 MG TAB PO ONE (10:30)
[2017-04-25] MEDS ORDERED: HYDROcodone/APAP 5 MG/325 MG (LORTAB) TAB PO PRN (10:30)
[2017-04-25] MEDS ORDERED: ACETAMINOPHEN 325 MG TABLET/CAPLET (TYLENOL) PO PRN (10:30)
[2017-04-25] MEDS ORDERED: ONDANSETRON 4 MG/2 ML (SDV) Z0FRAN IVP PRN (10:45)
[2017-04-25] MEDS: morphine INJ 10 MG/ML 1ML (SYR OR VIAL) IVP PRN ×2 (10:48→10:54)
[2017-04-25] MEDS ORDERED: PRD20T PO (10:50)
[2017-04-25] MEDS ORDERED: HYDR-3812 PO (10:50)
[2017-04-25] MEDS ORDERED: AMOX-355 PO (10:50)
[2017-04-25 11:20] VITALS: BP 124/82
[2017-04-25 11:50] VITALS: BP 129/79
[2017-04-25 12:20] VITALS: BP 133/85
[2017-04-25 13:00] VITALS: BP 133/85
--- NOTE | 2017-04-25 13:47 | Anesthesia-General Post-Op ---
General Patient Condition Mental Status/LOC: Same as Preop Cardiovascular: Satisfactory Nausea/Vomiting: Absent Respiratory: Satisfactory Pain: Controlled Complications: Absent Post Op Complications Complications None Follow Up Care/Instructions Patient Instructions None needed. Anesthesia/Patient Condition Patient Condition Patient is doing well, no complaints, stable vital signs, no apparent adverse anesthesia problems. No complications reported per nursing. YARELI ARANA CRNA Apr 25, 2017 13:47
== END 2017-04-25 13:17 | disposition home or self-care (01) ==
LOC: SDC 06:51
PROVIDERS: ATTEND Otolaryngology Otolaryngology/Facial Plastic Surgery
DX: J32.2 Chronic ethmoidal sinusitis (principal); J32.0 Chronic maxillary sinusitis; J34.2 Deviated nasal septum; J34.3 Hypertrophy of nasal turbinates; I10 Essential (primary) hypertension; E78.00 Pure hypercholesterolemia, unspecified; G56.93 Unspecified mononeuropathy of bilateral upper limbs; G57.93 Unspecified mononeuropathy of bilateral lower limbs; Z79.899 Other long term (current) drug therapy